=== PATIENT | male | born 1940 | race Caucasian/White ===

== ENCOUNTER 2024-02-03 14:49 | Emergency (ER) | payer BC ==
[2024-02-03 15:10] VITALS: RESP 18; BMI 18.7
[2024-02-03 16:17] LABS: BASO % 0.1 % (0-2.0); EOS % 0.2 % (0-4.5); HEMATOCRIT 34.4 % (35.4-49); HEMOGLOBIN 11.4 GM/dL (11.7-16.9); LYMPH % 3.6 % (8-40); MCH 29.7 pg (25.7-33.7); MEAN PLT VOLUME 8.5 fl (7.5-11.1); MONO % 6.4 % (3.8-10.2); NEUT % 89.7 % (42.8-82.8); PLATELET COUNT 242 10^3/uL (134-434); RBC 3.82 M/mm3 (4.00-5.60); RDW 14.9 % (11.9-15.9); WHITE BLOOD COUNT 15.7 K/mm3 (4.0-10.0)
[2024-02-03 16:34] LABS: EPI CELLS 9 /uL (0-25.1); HYALINE CASTS 2 /uL (0-3.1); PH,URINE 5.5 (5.0-8.0); URINE APPEARANCE CLEAR; URINE BACTERIA 2 /uL (0-1359); URINE BILIRUBIN NEGATIVE (NEGATIVE); URINE COLOR DK YELLOW; URINE GLUCOSE (UA) NEGATIVE (NEGATIVE); URINE KETONE TRACE (NEGATIVE); URINE LEUK ESTERASE NEGATIVE (NEGATIVE); URINE NITRITE NEGATIVE (NEGATIVE); URINE PROTEIN 2+ (NEGATIVE); URINE RBC 12 /uL (0-23.9); URINE WBC 17 /uL (0-25.8)
[2024-02-03 16:48] LABS: CALCIUM 8.8 mg/dL (8.5-10.1)
[2024-02-03 16:49] LABS: ALBUMIN 3.2 g/dl (3.4-5.0); BLOOD UREA NITROGEN 20.5 mg/dL (7-18)
[2024-02-03 16:52] LABS: CREATININE 0.9 mg/dL (0.55-1.3)
[2024-02-03 16:54] LABS: BILIRUBIN,TOTAL 0.6 mg/dL (0.2-1); TOT PROT 7.1 g/dl (6.4-8.2)
[2024-02-03] MEDS ORDERED: POTASSIUM CHLORIDE TABS 20 MEQ TABLET.ER (FP) PO ONE (18:08)
[2024-02-03] MEDS ORDERED: KCL 10 MEQ IVPB 10 MEQ/100 ML INFUS.BAG IVPB ONE ×2 (18:09→19:25)
[2024-02-03] MEDS: POTASSIUM CHLORIDE TABS 20 MEQ TABLET.ER (FP) PO ONE (18:20)
[2024-02-03] MEDS: KCL 10 MEQ IVPB 10 MEQ/100 ML INFUS.BAG IVPB SCH (18:20)
[2024-02-03 20:15] VITALS: BP 122/62; PULSE 77; TEMP 98.5
[2024-02-03 21:47] LABS: POTASSIUM 3.5 mmol/L (3.5-5.1)
[2024-02-03 21:48] LABS: BLOOD UREA NITROGEN 15.8 mg/dL (7-18); CALCIUM 8.4 mg/dL (8.5-10.1)
[2024-02-03 21:52] LABS: CREATININE 0.9 mg/dL (0.55-1.3)
== END 2024-02-03 23:48 | disposition home or self-care (01) ==
LOC: JER 14:49
PROC: 3E033GC Introduction of Other Therapeutic Substance into Peripheral Vein, Percutaneous Approach (ICD-10-PCS; principal; 2024-02-03)
DX: E87.6 Hypokalemia (principal)
CPT/HCPCS: 36415; 71045-TC-FY; 80048; 80053; 81003; 83735; 85025; 87040; 87086; 93005; 93010; 99285-25